=== PATIENT | female | born 1965 | race Caucasian/White ===

== ENCOUNTER → 2017-03-04 | Day surgery (SDC) | payer OTHER ==
[~2017-03-04] VITALS: Ht 172.7 cm; Wt 74.4 kg
--- NOTE | 2017-03-04 09:20 | MAMMOGRAPHY REPORT ---
EXAMINATION: MM GUIDED NEEDLE LOCALIZATION BREAST, RIGHT CLINICAL INFORMATION: Right breast ADH. COMPARISON: Straight tactic biopsy dated 12/29/2016. Mammogram dated 12/15/2016. TECHNIQUE NEEDLE LOC: Proper informed consent is obtained from the patient after discussion of the procedure, potential risks and complications, and alternatives including declining the procedure today. Patient was given an opportunity for questions. The patient appeared to understand. The patient consented to the procedure and signed the consent form. GUIDANCE: Digital mammography. APPROACH: Lateral TARGET: Biopsy clip in the upper outer quadrant of the right breast. ANESTHESIA: 10 mL Xylocaine 2%. LOCALIZATION MARKER: [employer]s 5 cm needle. The skin was prepped and local anesthesia administered. The needle was positioned and position assessed with mammography. The wire was hooked into position. The patient tolerated the procedure well and had no immediate complication. Diagram was marked for the surgeon. The target is a biopsy clip, located at the proximal thick thin junction, 3 cm deep to the skin with 8.5 cm of the wire remaining external to the skin. IMPRESSION: Status post right breast needle localization with wire hooked into position. The target is a biopsy clip, located at the proximal thick thin junction, 3 cm deep to the skin with 8.5 cm of the wire remaining external to the skin.
--- NOTE | 2017-03-04 10:32 | Operative Report ---
Operative/Inv Procedure Report Surgery Date: 03/04/17 Name of Procedure: Right breast biopsy with wire localization Pre-Operative Diagnosis: Right breast ADH Post-Operative Diagnosis: Same Estimated Blood Loss: scant Surgeon/Electrical Integrator: ELAN GAMBINO MD Anesthesia: local monitored anesthesi Specimens: Right breast biopsy Operative/Procedure Note Note: Patient is a needle biopsy showing atypical ductal hyperplasia. She was brought to the operating room for excisional biopsy with wire localization. Wire localization films were reviewed. Preoperative Ancef was given in the right breast was prepped and draped in a sterile fashion using ChloraPrep. Local anesthesia 1% lidocaine exception Marcaine was given. A curvilinear incision was made in the upper outer quadrant. The wire was brought into the incision. The area of concern was grasped using Allis clamp. The breast tissue was dissected using electrocautery. Specimen was removed and marked for orientation using margin map. Intraoperative x-ray confirmed the presence of the clip in the specimen. Hemostasis achieved using electrocautery. Deep tissue was proximal made using interrupted Vicryl sutures, and the skin was closed using a running Monocryl subcuticular stitch. Steristrips and sterile dressings were applied and patient transferred to the recovery room in satisfactory condition having tolerated the procedure well.
--- NOTE | 2017-03-04 15:07 | MAMMOGRAPHY REPORT ---
EXAMINATION: MM NEEDLE LOCALIZATION SPECIMEN FROM THE BREAST, RIGHT CLINICAL INDICATION: Excision of right breast breast ADH. COMPARISON: Needle localization films from earlier today. TECHNIQUE: Single specimen radiograph was performed. FINDINGS: The radiograph of the excised surgical specimen shows that the hookwire is delivered intact and the marker clip is identified in the specimen. IMPRESSION: Satisfactory excision of the targeted lesion. These findings were communicated to the surgeon in the OR at the time of specimen radiography.
== END ==
LOC: STS 02:39 → CBW.IIU 08:00 → CBW.MAMMO 08:30
DX: N62 Hypertrophy of breast (principal); N64.89 Other specified disorders of breast
CPT/HCPCS: 88307; J0690; J2001; J2250